=== PATIENT | female | born 1970 | race Two or more races ===

== ENCOUNTER 2022-08-13 23:58 | Emergency (ER) | payer MEDICARE, OTHER ==
[~2022-08-13] VITALS: Ht 167.6 cm; Wt 64.0 kg
--- NOTE | 2022-08-14 00:17 | NUR ---
PT JESSE & PLACED ON 5150 FOR DTS BY [facility] [employer] [facility] ON 08/13/22 2080. HAS PLAN FOR S/I WITH NOOSE. PT A/OX4. TOLERATING R/A WELL. CHANGED IN GOWN, ITEMS PLACED IN LOCKER, WANDED BY SECURITY. SITTER AT PT'S BEDSIDE
--- NOTE | 2022-08-14 00:20 | NUR ---
PATIENT BITING AND SPITTING AT STAFF, PATIENT PLACED IN RESTRAINTS PER MD ORDER.
--- NOTE | 2022-08-14 00:27 | NUR ---
COVID ANTIGEN SWAB COLLECTED AND SENT TO LAB. PROVIDED PT WITH URINE CUP; NOT ABLE TO GIVE URINE SAMPLE AT THIS TIME.
[2022-08-14] MEDS ORDERED: HALOPERIDOL LACTATE INJ 5 MG/ML VIAL ONE (00:47)
[2022-08-14] MEDS ORDERED: diphenhydrAMINE HCL 50 MG/ML VIAL ONE (00:47)
[2022-08-14] MEDS ORDERED: LORAZEPAM INJ 2 MG/ML VIAL ONE (00:48)
[2022-08-14] MEDS ORDERED: HALOPERIDOL LACTATE INJ 5 MG/ML VIAL IM ONE (01:00)
[2022-08-14] MEDS ORDERED: LORAZEPAM INJ 2 MG/ML VIAL IM ONE (01:00)
[2022-08-14] MEDS ORDERED: diphenhydrAMINE HCL 50 MG/ML VIAL IM ONE (01:00)
--- NOTE | 2022-08-14 01:20 | NUR ---
RESTRAINTS TAKEN OFF PATIENT THEN REPLACED SINCE PATIENT IS STILL BEING AGGRESSIVE.
--- NOTE | 2022-08-14 01:30 | NUR ---
RADIOLOGIC TECHNOLOGY TEACHER AT PT'S BEDSIDE
--- NOTE | 2022-08-14 01:36 | NUR ---
URINE COLLECTED AND SENT TO LAB
[2022-08-14 01:53] LABS: BILIRUBIN,URINE SMALL (NEGATIVE); COLOR,URINE YELLOW (YELLOW); LEUKOCYTE ESTERASE ,URINE NEGATIVE (NEGATIVE); NITRITE, URINE NEGATIVE (NEGATIVE); PROTEIN,URINE 30 mg/dl (NEGATIVE); UGLUCOSE NEGATIVE (NEGATIVE); UROBILINOGEN,URINE 0.2 EU/dL (0.2)
[2022-08-14 01:54] LABS: CALCIUM, SERUM 8.7 mg/dL (8.5-10.1); CARBON DIOXIDE 28 mmol/L (21-32); CHLORIDE 107 mmol/L (98-107); CREATININE 1.5 mg/dL (0.6-1.3); GLUCOSE 87 mg/dL (74-106); POTASSIUM 3.6 mmol/L (3.5-5.1); SODIUM SERUM 143 mmol/L (136-145); UREA NITROGEN, BLOOD 17 mg/dL (7-18)
[2022-08-14 01:56] LABS: BASOPHILS % (AUTO) 0.6 % (0.0-2.0); EOSINOPHILS % (AUTO) 3.3 % (0.0-6.0); HEMATOCRIT 38 % (33-45); HEMOGLOBIN 12.4 g/dL (11.5-14.8); LYMPHOCYTES % (AUTO) 46.6 % (20.0-44.0); MEAN CORPUSCULAR HGB CONC 33 g/dl (31.0-36.0); MEAN CORPUSCULAR VOLUME 86 fL (82-100); MONOCYTES # (AUTO) 0.4 K/uL (0.1-1.30); MONOCYTES % (AUTO) 6.7 % (2.0-12.0); NEUTROPHILS # (AUTO) 2.8 K/uL (1.8-8.9); NEUTROPHILS % (AUTO) 42.8 % (43.0-81.0); PLATELET COUNT (AUTO) 267 K/uL (150-450); WHITE BLOOD COUNT (AUTO) 6.5 K/uL (4.3-11.0)
[2022-08-14 01:59] LABS: BACTERIA,URINE Rare /HPF (None Seen); CALCIUM OXALATE CRYSTALS,UR Few /HPF (None Seen); SQUAMOUS EPITHELIAL CELL,UR Few /HPF (None Seen)
[2022-08-14 02:00] LABS: ALANINE AMINOTRANSFERASE 23 U/L (12-78); ALBUMIN 3.1 g/dL (3.4-5.0); ALCOHOL, BLOOD < 3 mg/dL (0-0); ALKALINE PHOSPHATASE 76 U/L (46-116); ASPARTATE AMINOTRANSFERASE 18 U/L (15-37); BILIRUBIN,DIRECT 0.1 mg/dL (0.0-0.2); BILIRUBIN,TOTAL 0.2 mg/dL (0.2-1.0); TOTAL PROTEIN, SERUM 6.5 g/dL (6.4-8.2)
[2022-08-14 02:01] LABS: ACETAMINOPHEN 0 ug/ml (10-30)
--- NOTE | 2022-08-14 04:32 | NUR ---
MAYDA MARTINEZ CRISIS TEAM AT PT'S BEDSIDE
--- NOTE | 2022-08-14 06:53 | NUR ---
RESTAINTS OFF PATIENT, PATIENT CIRCULATION INTACT. PATIENT SLEEPING WELL AND ON MONITOR.
[2022-08-14 09:24] VITALS: BP 104/61
--- NOTE | 2022-08-14 11:05 | NUR ---
SW faxed clincials to the [facility] for possible admission: [facility] TEL: [phone] fax: [phone] [facility] [place] [place] fax:[phone] tel:[phone] [facility] FAX: [phone] TEL:[phone] ; [address] [facility] tel:[phone] FAX:[phone]; [phone] [facility] [[facility] [place] [address] tel: ;1 fax:[phone]
--- NOTE | 2022-08-14 12:15 | NUR ---
AVERY CORRAL FROM [facility] PATIENT IS ACCEPTED UNDER DR OBRIEN, WILL BE ADMITTED AT UNIT#2. CONTACT NUMBER [phone] AND REPORT WAS GIVEN FOR YAW.
--- NOTE | 2022-08-14 12:25 | NUR ---
[facility] ETA [phone]
--- NOTE | 2022-08-14 14:35 | NUR ---
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
== END 2022-08-14 14:35 ==
LOC: ER 08-14 00:01
DX: R45.851 Suicidal ideations (principal); F19.10 Other psychoactive substance abuse, uncomplicated; Z20.822 Contact with and (suspected) exposure to COVID-19; Z78.1 Physical restraint status
CPT/HCPCS: 99285; 96372; 85025; 80048; 80076; 81001; 36415; 87426; 80143; 80320; 80307; J2060; J1200; J1630; C9803; G0480